=== PATIENT | female | born 1995 | race Caucasian/White ===

== ENCOUNTER 2020-02-05 19:03 | Emergency (ER) | payer MEDICAID ==
[~2020-02-05] VITALS: Ht 152.4 cm; Wt 81.6 kg
[~2020-02-05 19:03] MED LIST: FERR-252 PO; PREN-152 PO
[2020-02-05 19:18] VITALS: BP_SYST 13; BP_SYST 134; BP_DIAS 2; BP_DIAS 82
--- NOTE | 2020-02-05 19:29 | NUR ---
CHUCKIE SUN AT BEDSIDE EVALUATING PT.
--- NOTE | 2020-02-05 19:46 | NUR ---
NO NURSING INTERVENTION ORDERED BY CHUCKIE SUN.
== END 2020-02-05 19:47 | disposition home or self-care (01) ==
LOC: MED 19:03
DX: D17.9 Benign lipomatous neoplasm, unspecified (principal); Z79.899 Other long term (current) drug therapy
CPT/HCPCS: 99282